=== PATIENT | male | born 1980 | race Caucasian/White ===

== ENCOUNTER 2023-06-16 05:48 | Emergency (ER) | payer OTHER, SELFPAY ==
[2023-06-16] VITALS (7 sets, daily range): BP systolic 105–139; BP diastolic 76–85; PULSE 74–101; RESP 14–20; TEMP 36.4–36.9; O2SAT 94–100; BMI 37.7
[2023-06-16 06:58] LABS: Amphetamine Screen Urine Not Detected (Not Detect); Barbiturates, Urine Not Detected (Not Detect); Benzodiazepines Screen Urine Not Detected (Not Detect); Cannabinoid Screen Urine Not Detected (Not Detect); Cocaine Screen Urine POSITIVE (Not Detect); Fentanyl, urine Not Detected (Not Detect); Opiate Screen Urine Not Detected (Not Detect); Phencyclidine Screen Urine Not Detected (Not Detect)
[2023-06-16 07:03] LABS: COVID-19 Test Negative (Negative); IDNOW Serial# 9DB6401D
[2023-06-16 07:13] LABS: Appearance Urine Clear; Color Urine Yellow; Glucose Urine UA Negative (Negative); Leukocyte Esterase Urine Negative (Negative); Nitrite Urine Negative (Negative); UMIC TRIGGER UACC YES; Urine Blood Negative (Negative); Urine Ketones Negative (Negative); Urine Protein 30 (1+) mg/dL (Neg-Trace)
[2023-06-16 07:25] LABS: Bacteria Urine None Seen (None Seen); Hyaline Casts Urine 0-2 /LPF (0-2); RBC Urine 0-2 /HPF (0-2); Specific Gravity - Urine >= 1.030 (1.005-1.025); Squamous Epithelial Cell Urine 0-2 /HPF (0-2); WBC Urine 0-5 /HPF (0-5)
--- NOTE | 2023-06-16 07:36 | PC.NURSE ---
Assumed care of patient at 0700, patient appears to be sleeping at this time, respirations even and unlabored, no apparent distress noted. plan to obtain labs when patient is more awake/lucid and able to stay still. Plan of care for medical clearance and then CARE team assessment
--- NOTE | 2023-06-16 07:50 | ED_ITS ---
HPI - Psych General Chief Complaint: Psychiatric Symptoms Stated Complaint: SI/HI/Hallucinations Time Seen by Provider: 06/16/23 06:45 Source: patient Mode of arrival: ambulatory Limitations: other (Poor historian, not wanting to participated ) History of Present Illness HPI Narrative: This is a 42 year old male presents to the ED for evaluation of drug use and SI w/ plan to shoot himself w/ fathers gun has been feeling like this for a while he also reports he has not been able to sleep for a while due to increasing anxiety and he feels like the poultry service technician will get him when hes sleeping per nursing notes and some of what patient says tells me he doesnt wanna talk and wants to sleep. He reports that the poultry service technician are trying to holden him and catch him to nurisng. He doesnt endorse homicidal ideation. Denies alcohol. Reports pain to his left lower molar and states he thinks this tooth is infected and needs to be looked at hasnt been seen by a dentisit. Denies sore throat, fevers, chills, cp, sob, difficulty swallowing, n/v/d, fevers,chills, mejía, vision changes, dizziness, wekaness. Related Data Home Medications Medication Instructions Recorded Confirmed No Known Home Meds 06/16/23 06/16/23 Allergies Allergy/AdvReac Type Severity Reaction Status Date / Time No Known Allergies Allergy Verified 06/16/23 05:50 Review of Systems Review of Systems: Yes all other systems are reviewed and are negative PMFSH Past Medical History Attestation statement: The following information was validated with the patient. Source: old records reviewed and nursing notes reviewed Social History Social History Use of substances other than those prescribed or required for medical reasons: Yes Substance Use Type: Crack/Cocaine Advance Directives: No Physical Exam Vital Signs: Vital Signs: Last Vital Signs Temp 97.6 F 06/16/23 14:34 Pulse 79 06/16/23 15:00 Resp 14 06/16/23 15:15 BP 135/76 06/16/23 14:34 Pulse Ox 98 06/16/23 15:00 O2 Del Method Room Air 06/16/23 15:00 BMI result Body Mass Index 37.7 vss Appearance: Alert.? Oriented X3.? No acute distress.? Head: Normocephalic, atraumatic, no step-offs or deformities Eyes: Pupils equal, round and reactive to light.? ENT: Pharynx normal.?+ TTP to tooth number 19 &18 no signs of abscess, poor dentition and hallitosis throughout multiples dental fx and carries. Neck: Normal inspection.? Neck supple.? CVS: Normal heart rate and rhythm.? Pulses normal.? Respiratory: No respiratory distress.? Breath sounds normal.? Abdomen: Soft and nontender.? Skin: Skin warm and dry.? Normal skin color.? Normal skin turgor.? Extremities: No lower extremity edema.? No calf ttp. 5/5 strength to bilateral upper and lower extremities Back: No midline tenderness, no C-spine tenderness, full range of motion, no CVA tenderness bilaterally Neuro: Oriented X 3.? No motor deficit.? No sensory deficit. CN 2-12 intact Course Reevaluation(s) Reevaluation #1: Labs pending. UA without infection. Toxicology positive for cocaine. Patient's COVID negative. Pending labs and care team evaluate Time: 07:57 Reevaluation #2: Patient refusing labs. Patient did become agitated at 1 point requiring IM medications. Behavioral restraint order placed. Patient was a threat to self and others. Labs will be obtained at a later time patient has a right to refuse these labs. At this time patient to be placed into observation to allow more time to be evaluated by behavioral health team. Time: 15:50 Medications Administered Generic Name Dose Route Start Last Admin Trade Name Freq PRN Reason Stop Dose Admin Amoxicillin 500 mg 06/16/23 09:00 06/16/23 08:36 Amoxicillin 500 Mg Capsule PO Not Given BID JAYCOB Discontinued Medications Generic Name Dose Route Start Last Admin Trade Name Freq PRN Reason Stop Dose Admin Amoxicillin 500 mg 06/16/23 07:57 06/16/23 08:26 Amoxicillin 500 Mg Capsule PO 06/16/23 07:58 Not Given ONCE ONE Diphenhydramine HCl 50 mg 06/16/23 14:15 06/16/23 14:22 Diphenhydramine Hcl 50 Mg/Ml Vial IM 06/16/23 14:16 Not Given ONCE ONE Haloperidol Lactate 5 mg 06/16/23 14:15 06/16/23 14:23 Haloperidol Lactate 5 Mg/Ml Vial IM 06/16/23 14:16 Not Given ONCE ONE Lorazepam 2 mg 06/16/23 14:15 06/16/23 14:23 Lorazepam 2 Mg/Ml Vial IM 06/16/23 14:16 Not Given STAT STA Medical Decision Making Medical Decision Making [facility] Narrative: 42-year-old male presents for evaluation of acute pablo also reporting left lower molar pain for the past few days worsening. Not followed by a dentist. Denies blunt trauma. History and physical exam patient appears manic & TTP to tooth number 19 &18 no signs of abscess, poor dentition and hallitosis throughout multiples dental fx and carries. History and physical exam concerning for schizophrenia versus bipolar disorder with acute pablo/psychosis. Tooth pain likely secondary to dental caries/dental infection. No signs of abscess, threat to airway, acute respiratory distress, Mazin's. Will rule out metabolic derangements although unlikely. Will also rule out urinary infection although unlikely Plan- medical clearance and evaluaiton by team. Differential Diagnosis Differential Diagnoses: The differential diagnosis associated with the presentation includes History and physical exam concerning for schizophrenia versus bipolar disorder with acute pablo/psychosis. Tooth pain likely secondary to dental caries/dental infection. No signs of abscess, threat to airway, acute respiratory distress, Mazin's. Will rule out metabolic derangements although unlikely. Will also rule out urinary infection although unlikely Admission/Observation Consideration of admission/observation: Escalation of care including admission/observation considered Likely psychiatric admission Consult Healthcare Provider Management of the patient was discussed with: Behavioral Health Provider Lab Data [facility] Lab Attestation statement: I reviewed the patient's lab results. Labs: Lab Results 06/16/23 06/16/23 Range/Units 06:40 06:41 Urine Color Yellow Urine Appearance Clear Urine pH 6.0 (5.0-9.0) Ur Specific [place] >= 1.030 H (1.005-1.025) Urine Protein 30 (1+) H (Neg-Trace) mg/dL Urine Glucose (UA) Negative (Negative) mg/dL Urine Ketones Negative (Negative) mg/dL Urine Blood Negative (Negative) Urine Nitrite Negative (Negative) Ur Leukocyte Esterase Negative (Negative) Urine RBC 0-2 (0-2) /HPF Urine WBC 0-5 (0-5) /HPF Ur Squamous Epith Cells 0-2 (0-2) /HPF Urine Bacteria None Seen (None Seen) Hyaline Casts 0-2 (0-2) /LPF Urine Opiates Screen Not Detected (Not Detect) Urine Fentanyl Screen Not Detected (Not Detect) Ur Barbiturates Screen Not Detected (Not Detect) Ur Phencyclidine Scrn Not Detected (Not Detect) Ur Amphetamines Screen Not Detected (Not Detect) U Benzodiazepines Scrn Not Detected (Not Detect) Urine Cocaine Screen POSITIVE H (Not Detect) U Marijuana (THC) Screen Not Detected (Not Detect) COVID-19 (QUINN) Negative (Negative) COVID-19 Clin Com See Note External Record Review No previous visits Chronic Conditions Patient?s care impacted by: Other (Psychiatric disorder) Social Determinants Patient?s care significantly limited by Social Determinants of Health including: Alcoholism and drug addiction in family and Other Social Determinant of Health Critical Care Time Critical Care Time Critical Care Time: No Discharge Plan Discharge Clinical Impression: Acute psychosis, Pain in tooth Patient Disposition: Still a Patient Prescriptions: No Action No Known Home Meds Interventions: Bradford-Suicide Risk Severity Scale Last Done: 06/16/23 14:39
--- NOTE | 2023-06-16 13:01 | PC.NURSE ---
Derrick isotope technologist attempted to draw patient two times without success. Pt would not stay still, yelling and moving arms despite multiple redirection attempts. Patient verbalizes upset with blood draws and refusing repeat try at this time.
--- NOTE | 2023-06-16 13:57 | PC.NURSE ---
Pt approached nurses station requesting his suboxone stating that he withdrawing from it and needs it at this time. This RN attempted to call [facility] where he gets his suboxone dose, message left with professional athlete answering service. Pt presenting anxious, agitated, fidgety, pressure speech and nauseous. Pt states he feels like he needs something to take the edge off . ERWIN Lorenzo aware at this time
--- NOTE | 2023-06-16 14:00 | PC.NURSE ---
Late entry: Gonzalo approached the nurses station requesting his suboxone. Per his medication rec, he has no medications currently ordered. Last dose of Suboxone was 03/20/23 at the [facility]. This RN asked patient where he currently received his Suboxone so we could verify his current dose and when he last received it. Pt relayed to this RN he picks his Suboxone up at [facility]. this RN attempted to call [facility] and left a message with the vault person messaging service. While this RN was on the phone with [facility], patient was pacing up and down hallway, attempting to ask this RN for his Suboxone dose now, I need it now . This RN attempted to verbally redirect patient however patient became upset. Pt yelled I need my damn Subxone now . Pt then began to threaten to kick in the door, stating I am just going to leave . Pt then began pacing back and forth, yelling. This RN called provider Maura who stated I section him then since he wants to leave . This RN attempted to explain the situation however pt continued to escalate. Security was called to patient's side. Pt agreeable to take medications, unwilling to take PO meds at this time but agreeable to IM medications. This RN medicated patient with 5mg Haldol, 2mg Ativan and 50mg Benadryl in the upper deltoids. Pt took medications willingly. Pt requested phone afterwards. Was on the phone yelling with family member about stay here. Pt eventually calmed down, and has been laying on bed, respirations even and unlabored, no apparent distress since This Rn and Ranjit MCPHERSON chas pts labs without issue
--- NOTE | 2023-06-16 14:59 | MHC.RECOVRN ---
Received request to meet with pt. to provide recovery resources. T/W went to ED to meet with pt but he had just received IM medication for agitation and was resting. Nurse requested I come back tomorrow which I will do.
[2023-06-16 16:05] LABS: Hematocrit 37.2 % (42.0-52.0); Hemoglobin 13.1 g/dl (14.0-18.0); Mean Corpuscular HGB Conc 35.2 g/dl (31.0-36.0); Mean Corpuscular Hemoglobin 29.7 pg (27.0-33.0); Mean Corpuscular Volume 84.4 fL (80.0-98.0); Platelet Count 159 X10*3/uL (160-400); Red Blood Count 4.41 X10*6/uL (4.60-5.80); Red Cell Distribution Width 13.2 % (11.0-16.0); White Blood Count 6.3 X10*3/uL (4.8-10.8)
[2023-06-16 16:18] LABS: Anion Gap 13 (12-20); Blood Urea Nitrogen 15 mg/dL (9-16); Calcium 8.3 mg/dL (8.4-10.2); Carbon Dioxide 27 mmol/L (22-29); Chloride 106 mmol/L (96-108); Creatinine Clr Calc Pharmacy 120.6; Estimated Glomerular Filt Rate > 60; Ethanol < 10 mg/dL; Glucose Random 143 mg/dL (60-115); Potassium 3.3 mmol/L (3.3-5.1); Sodium 143 mmol/L (135-145)
--- NOTE | 2023-06-16 17:34 | PC.NURSE ---
Pt continues to sleep, respirations even and unlabored, no acute distress noted. continue plan of care for medical clearance then CARE team disposition
--- NOTE | 2023-06-16 18:07 | MHC.CARE ---
RAD team conducted a statewide bed search. Referral being reviewed?by [facility] [place], [place], [place].? RAD team to f/u with facilities to see outcome
--- NOTE | 2023-06-16 18:24 | MHC.CARE ---
RAD Team also faxed pt referral to [facility] for their waitlist
[2023-06-16] MEDS: Amoxicillin 500 MG CAPSULE PO (20:17)
--- NOTE | 2023-06-16 20:55 | PC.NURSE ---
Assumed care of pt at 1900. PT sleeping until 815pm in which he requested food. Medications administered as per JUN. Pt ambulated back to room with a steady gait. Offering no complaints at this time. Safety precautions in place. plan of care ongoing
[2023-06-16] MEDS: Ibuprofen 600 MG TABLET PO (21:09)
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
[2023-06-16] MEDS: Buprenorphine/Naloxone 8/2 mg FILM 1 FILM SUBLINGUAL (23:02)
--- NOTE | 2023-06-17 00:55 | PC.NURSE ---
PT attempting to open locker 1. Redirected by lead maintenance technician with no issues. States he was looking for food. waiter/waitress cabin class provided pt with food and requested pt to clean up room as he had piece of bread and other trash on the floor. Safety precautions in place. Plan of care ongoing.
[2023-06-17 06:32] VITALS: BP 127/68; PULSE 61; RESP 17; TEMP 36.6; O2SAT 98
--- NOTE | 2023-06-17 06:58 | PC.NURSE ---
Assumed care of patient at 0700, patient up in bed eating breakfast, no apparent distress at this time. Pt is sec 12 dual diagnosis bedsearch at this time
[2023-06-17] MEDS: Amoxicillin 500 MG CAPSULE PO ×2 (08:54→19:32)
[2023-06-17] MEDS: Ibuprofen 600 MG TABLET PO ×2 (09:49→19:32)
--- NOTE | 2023-06-17 10:28 | MHC.RECOVRN ---
Returned to meet with pt as per his request yesterday. Attempted at that time but pt. had just been medicated and was resting. Pt. awake and alert and appropriate with conversation. Pt requesting assistance with re-starting suboxone dose. Pt received a one time dose of 8mg yesterday and reports that had helped a lot with W/D but is still experiencing nausea. Pt reports he has been on suboxone x 9 years at that he started taking it due to pain. He was D/C from his pain clinic and was purchasing Percocet on the street but once they became pressed fentanyl he sought help and started suboxone. Current reported dose of 16mg/day verified with POWER SHEAR OPERATOR. Last fill was on 06/08/23 for suboxone 8-2mg x 5 and suboxone 4-1mg x 10. This information was reviewed with supervisor cooperage shop Janene Barrientos NP and covering provider Dr. Morris and agreed to order 8-2mg QAM, 4-1mg Q2pm and 4-1mg Q8PM. Pt and nurse Meghan were updated. Pt also requesting detox. I informed pt that care team are currently searching for a dual dx bed for him. Pt given my information and encouraged to reach out with further questions.
[2023-06-17] MEDS: hydrOXYzine HCL 25 MG TABLET PO (12:20)
[2023-06-17] MEDS: Nicotine Polacrilex 2 MG GUM BUCCAL (12:20)
[2023-06-17] MEDS: Buprenorphine/Naloxone 8/2 mg FILM 1 FILM SUBLINGUAL (14:30)
--- NOTE | 2023-06-17 14:34 | PC.NURSE ---
Acknowledged suboxone order at 1106 am. Medication was never made available, stayed grayed out. called pharmacy back pharmacy put new order in and the medications still was grayed out. called pharmacy back and was told to give an unscheduled dose for 1430. Dose was given at 1430 not 1106. Charge nurse Mary Kay made aware.
[2023-06-17] MEDS: LORazepam 1 MG TABLET PO (17:20)
--- NOTE | 2023-06-17 18:37 | MHC.CARE ---
RAD team conducted a Dual bed search for this pt. Pt referral was faxed to [facility] for review. No beds are available, bed search exhausted and will continue tomorrow.
[2023-06-17] MEDS: Buprenorphine/Naloxone 4/1 mg FILM 1 FILM SUBLINGUAL (19:32)
[2023-06-17 19:36] VITALS: BP 119/75; PULSE 97; RESP 18; TEMP 36.6; O2SAT 98
== END 2023-06-17 22:15 | disposition home or self-care (01) ==
PROVIDERS: Emergency Medicine; Emergency Provider Emergency Medicine Emergency Medical Services
DX: F23 Brief psychotic disorder (principal); K08.89 Other specified disorders of teeth and supporting structures; F32.A Depression, unspecified; R45.851 Suicidal ideations; F14.90 Cocaine use, unspecified, uncomplicated; R45.1 Restlessness and agitation; Z11.52 Encounter for screening for COVID-19
CPT/HCPCS: 80048; 80307; 81001; 81003; 85027; 87635; 96372; 99285; J1200; J1630; J2060; S9485